=== PATIENT | male | born 1955 | race Caucasian/White ===

== ENCOUNTER 2025-01-07 00:31 | Inpatient (IN) | payer OTHER ==
[~2025-01-07] VITALS: Ht 175.3 cm; Wt 80.0 kg
[2025-01-07] VITALS (9 sets, daily range): BP systolic 116–142; BP diastolic 49–75; PULSE 96–122; RESP 18–43; TEMP 97.1–97.2; O2SAT 95–100
[~2025-01-07 00:31] MED LIST: ACET-1008 PO; ALPR0.5T8 PO; LISI10TA27 PO
--- NOTE | 2025-01-07 00:53 | Physician Documentation ---
History of Present Illness General Stated Complaint: XFER Time Seen by MD: 00:36 Primary Medical Doctor: Dr. Thomason History of Present Illness Initial Comments 69-year-old male transfer [facility] for sepsis, patient presented there was shortness of breath and weakness the patient has a history of prostate cancer and received chemotherapy a week ago. Patient was given Zosyn and vanco and found to have a significant lactic acidosis. The patient is selective care he does not want intubation, the patient is confused he is unable to provide any additional history. The patient was transferred to our facility by air. His lactate was 13 at the outside institution. Medication Reconciliation Allergies: Uncoded Allergies: CHLORAPREP (Allergy, Unknown, 07/19/24) Scheduled Lisinopril (Lisinopril), 10 MG PO DAILY Scheduled PRN Acetaminophen (Tylenol), 650 MG PO Q6H PRN for pain, (Reported) Alprazolam (Alprazolam), 1 TAB PO BID PRN for anxiety, (Reported) Past Medical History Other Past Medical History: Prostate cancer Smoking: Quit greater than 1 year Alcohol Use: Alcoholic Drug Use: marijuana Lives with: Spouse Lives In: Home Occupation: retired Review of Systems Unable to obtain complete ROS: altered mental status Physical Exam Physical Exam Physical Exam VITALS: Reviewed and as above. GENERAL: Confused, follows commands moderate respiratory distress HEENT: Normocephalic, atraumatic, PERRL, EOMI, dry mucosa, no erythema RESPIRATORY: Diminished breath sounds bilaterally with rhonchi bilaterally, moderate respiratory distress CHEST: No accessory muscle use, no retractions CV: Regular rate, rhythm, no edema, no murmur, No: JVD GI: Soft, non-tender, bowels sounds present, no rebound, guarding, or rigidity BACK: No CVA tenderness, or swelling MUSCULOSKELETAL: No deformities, no edema SKIN: Warm and dry, no rash NEURO: Oriented x1, No motor or sensory deficit Progress Results/Orders Results/Orders Orders - JAM TABOR MD Chest,Single View (01/07/25 00:43) Ct Chest Abdomen Pelvis (01/07/25 02:40) Page Hospitalist (01/07/25 02:44) Fill Out Med Reconciliation (01/07/25 02:44) Abg (Arterial Blood Gas) (10/18/25 ) Completed Orders - OHLFS,JAM Stewart MD CMP (01/07/25 00:43) Procalcitonin (01/07/25 00:43) Chest,Single View (01/07/25 00:43) LA (01/07/25 00:53) Normal Saline 1000ml (0.9% Sodium Chlori (01/07/25 01:00) Piperacillin/Tazo 3.375gm/50ml (Zosyn 3. (01/07/25 01:00) Cbc/Diff (01/07/25 02:01) Normal Saline 1000ml (0.9% Sodium Chlori (01/07/25 02:15) Ct Chest Abdomen Pelvis (01/07/25 02:40) Lactic,2hr (01/07/25 02:57) Man Diff (01/07/25 02:43) Potassium Cl Sr Tablet (K-Dur Tablet) (01/07/25 03:35) Potassium Cl Sr Tablet (K-Dur Tablet) (01/07/25 03:35) Magnesium Cl Er Tablet (Slow-Mag Tablet) (01/07/25 03:35) Magnesium Sulf-Water 2g/50ml (Magnesium (01/07/25 03:35) Magnesium Sulf-Water 4g/100ml (Magnesium (01/07/25 03:35) Potassium Cl 40meq/1/2ns 520ml ([place] (01/07/25 03:35) K And/Or Mag Replacement (K And/Or Mag R (01/07/25 08:00) Hgb A1c (01/07/25 01:18) MG (01/07/25 01:18) PBNP (01/07/25 01:18) PHOS (01/07/25 01:18) Direct Bili (01/07/25 01:18) LDH (01/07/25 01:18) Vital Signs 01/07/25 01/07/25 01/07/25 00:43 00:58 03:00 Temp 98.7 Pulse 103 101 Resp 26 26 28 B/P (MAP) 116/79 129/75 (93) Pulse Ox 95 93 O2 Flow Rate 15.0 12.0 Laboratory Tests Test 01/07/25 01:18 01/07/25 02:43 01/07/25 03:52 CBC Comment Sodium Level 141 Potassium Level 2.8 *L Chloride Level 105 Carbon Dioxide Level 21.7 L Anion Gap 14 Blood Urea Nitrogen 28 H Creatinine 1.67 H Estimated GFR/1.73 m2 41 BUN/Creatinine Ratio 16.8 Glucose Level 68 L Hemoglobin A1c 5.5 Lactic Acid Level 7.2 *H 6.6 *H Calcium Level 8.9 Phosphorus Level 4.0 Magnesium Level 1.7 Total Bilirubin 3.2 H Direct Bilirubin 2.1 H Aspartate Amino Transf (AST/SGOT) 62 H Alanine Aminotransferase (ALT/SGPT) 46 Alkaline Phosphatase 33 L Lactate Dehydrogenase 212 Pro-B-Type Natriuretic Peptide 53057 H Total Protein 5.9 L Albumin 1.8 L Globulin 4.1 Albumin/Globulin Ratio 0.4 L Procalcitonin 28.26 H Chemistry Comments White Blood Count 0.9 *L Red Blood Count 3.43 L Hemoglobin 12.5 L Hematocrit 34.7 L Mean Corpuscular Volume 101.0 H Mean Corpuscular Hemoglobin 36.5 H Mean Corpuscular Hemoglobin Concent 35.4 Red Cell Distribution Width 14.7 H Platelet Count 36 *L Mean Platelet Volume 11.1 H Neutrophils (%) (Auto) Lymphocytes (%) (Auto) Monocytes (%) (Auto) Eosinophils (%) (Auto) Basophils (%) (Auto) Neutrophils # (Auto) Lymphocytes # (Auto) Monocytes # (Auto) Eosinophils # (Auto) Basophils # (Auto) Differential Total Cells Counted 50 Neutrophils % (Manual) 36.0 L Band Neutrophils % 6.0 Lymphocytes % (Manual) 54.0 H Monocytes % (Manual) 4.0 Platelet Estimate Decreased Large Platelets Few Red Blood Cell Morphology Perf Basophilic Stippling Anisocytosis 1+ Macrocytosis 1+ Prothrombin Time 15.0 H INR International Normalized Ratio 1.5 Activated Partial Thromboplast Time 39 H D-Dimer 1.17 H D-Dimer Comment Coagulation Comments Blood Gas Specimen Type Arterial Blood Gas Puncture Site Rr O2 Saturation 96.7 Arterial Blood pH (Temp corrected) 7.493 H Arterial Blood pCO2 (Temp correct) 25.6 L Arterial Blood pO2 (Temp corrected) 89.8 Arterial Blood PO2/FiO2 Ratio 0.95 Arterial Blood HCO3 19.2 L Arterial Blood Base Excess -2.7 L Arterial Blood Oxyhemoglobin 96.2 Arterial Blood Carboxyhemoglobin 0.2 L Arterial Blood Methemoglobin 0.3 Arterial Blood Deoxyhemoglobin 3.3 Krunal Test Modified Blood Gas Hemoglobin 12.5 L Blood Gas Temperature 37.0 Blood Gas Liter Flow 15 Blood Gas Modality Mask - nrb FiO2 96.0 Medical Decision Making Additional information obtaine: old records Findings The patient's EKG was interpreted as a sinus tachycardia with a rate of 104 with a left axis and nonspecific ST abnormalities the EKG was interpreted as a borderline EKG time of the EKG interpretation was 0438. The patient was transferred to our facility for [facility] with a history of prostate cancer recently on chemo and neutropenic the patient is critically ill with neutropenic fever likely from pneumonia, the patient was continued on antibiotics here in the emergency department the patient expressed his desire to be a DNR at the outside institution and paperwork has been transferred with the patient. The patient was given IV fluids as well. Prior hospitalizations have been reviewed. The patient's pulse oximetry was interpreted as abnormal and low. Differential Diagnosis Pneumonia, urosepsis, dehydration, Departure Admitted to Inpatient Unit: yes, to hospitalist Impression: Primary Impression: Neutropenia Qualified Codes: D70.1 - Agranulocytosis secondary to cancer chemotherapy; T45.1X5A - Adverse effect of antineoplastic and immunosuppressive drugs, initial encounter Additional Impression: Septic shock Referrals: NO PRIMARY CARE PROVIDER (PCP) Signature Scribe Signature: no scribe Attestation: The note accurately reflects work and decisions made by me.Jam Tabor MD 01/09/25 07:42 JAM TABOR MD Jan 07, 2025 00:53
--- NOTE | 2025-01-07 01:13 | RADIOLOGY REPORT ---
CHEST RADIOGRAPH Indication: sob Technique: Single frontal view of the chest was obtained COMPARISON: None FINDINGS: Lines and Tubes: Right mediPort tip projects over the distal superior vena cava. Lungs: Clear Pleura: No effusion. No pneumothorax. Cardiomediastinal contours: Unremarkable Bones: Unremarkable IMPRESSION: 1. No radiographic evidence of acute cardiopulmonary abnormality. 2. Right MediPort.
[2025-01-07 01:50] LABS: CREATININE 1.67 MG/DL (0.60-1.10); TOTAL CARBON DIOXIDE 21.7 MMOL/L (24-32); eCRCL 42 ML/MIN; eGFR 41 ML/MIN
[2025-01-07] MEDS: piperacillin/tazo 3.375gm/50ml 50 ML IV ONE (02:16)
[2025-01-07] MEDS: normal saline 1000ML IV soln IVB ONE ×2 (02:17→03:54)
[2025-01-07 02:52] LABS: MEAN PLATELET VOLUME 11.1 FL (7.4-10.4); RED CELL DISTRIBUTION WIDTH 14.7 % (11.5-14.5)
[2025-01-07] MEDS ORDERED: potassium Cl 40MEQ/1/2NS 520ml 520 ML IV PRN ×2 (03:35→03:50)
[2025-01-07] MEDS ORDERED: magnesium sulf-water 4G/100mL 100 ML IV PRN ×2 (03:35→03:50)
[2025-01-07] MEDS ORDERED: magnesium Cl slow-release 64mg tablet PO PRN ×2 (03:35→03:50)
[2025-01-07] MEDS ORDERED: magnesium sulf-water 2g/50mL 50 ML IV PRN ×2 (03:35→03:50)
[2025-01-07] MEDS ORDERED: potassium Cl 20 mEq SR tablet PO PRN ×4 (03:35→03:50)
--- NOTE | 2025-01-07 03:48 | RADIOLOGY REPORT ---
Exam: CT CT CHEST ABDOMEN PELVIS History: septic shock Comparison Study: DI CHEST,SINGLE VIEW on DOS: 01/07/25, CT ABDOMEN AND PELVIS W/ CONTRAST on DOS: 07/19/24 Technique: Multidetector spiral CT of the chest, abdomen and pelvis was performed from lower neck to pubic symphysis Axial, coronal and sagittal multiplanar reformats were performed by the technologist on a separate workstation. Radiation Dose : 1. Chest/Abdomen/Pelvis: CTDIvol 14.83 mGy, DLP 968.97 mGy*cm. Findings: Lower neck: Normal thyroid. Lungs: Moderate posterior right lower lobe consolidation and patchy nodular appearing infiltrates throughout the right upper and bilateral lower lobes with a tree-in-bud morphology. No evidence of effusion or pneumothorax. Right MediPort terminates within the distal superior vena cava. Heart/Vascular Structures: Normal heart size. No pericardial effusion. Lymph Nodes: No adenopathy Pleura: No pleural effusion or significant pneumothorax. Liver: The liver is normal in size. Diffuse hepatic steatosis. No focal lesions. Normal hepatic parenchymal attenuation. Gallbladder and Biliary Tree: Unremarkable Spleen: Unremarkable Pancreas: The pancreas is normal in appearance without focal lesions. Adrenal Glands: Unremarkable Kidneys: Kidneys demonstrate normal symmetric parenchymal attenuation without focal lesions, calculi or hydronephrosis. Bladder: Unremarkable Bowel: The stomach is grossly normal in appearance. Scattered diverticula throughout the colon without CT evidence of acute diverticulitis. Small bowel and colon are normal in caliber and distribution. Anastomotic bowel sutures at the rectosigmoid junction. The appendix is not visualized; however, no secondary findings of acute appendicitis identified. Ascites: Absent Lymphadenopathy: No mesenteric, retroperitoneal or periportal lymphadenopathy. Abdominal Wall and Mesentery: Unremarkable. Vasculature: The visualized abdominal aorta is normal in size and caliber. Atherosclerotic vascular calcifications. Pelvic Organs: Unremarkable Musculoskeletal: No aggressive focal bony lesions, acute fractures or dislocation. IMPRESSION: 1. Moderate posterior right lower lobe consolidation and patchy nodular appearing infiltrates throughout the right upper and bilateral lower lobes with a tree-in-bud morphology. Findings are concerning for multifocal pneumonia and/or atypical infectious process. 2. Hepatic steatosis. 3. Diverticulosis without CT evidence of acute diverticulitis.
[2025-01-07] MEDS ORDERED: HYDROcodone/acetaminophen 10/325mg tab PO PRN (03:50)
[2025-01-07] MEDS ORDERED: HYDROcodone/acetaminophen 5mg/325mg tablet PO PRN (03:50)
[2025-01-07] MEDS ORDERED: mag hydrox/Alum hydrox/simeth 30ml oral suspension PO PRN (03:50)
[2025-01-07] MEDS ORDERED: ondansetron/PF 4mg/2ml inj IV PRN (03:50)
[2025-01-07] MEDS ORDERED: magnesium hydroxide 30ml (MOM) UD suspension PO PRN (03:50)
[2025-01-07 03:55] LABS: ABG BASE EXCESS -2.7 mmol/L (-2.0-3.0); ABG HCO3 19.2 mmol/L (21.0-28.0); ABG OXYGEN SATURATION 96.7 % (94.0-98.0); ABG PCO2 (T) 25.6 mmHg (35.0-48.0); ABG PH (T) 7.493 (7.350-7.450); ABG PO2 (T) 89.8 mmHg (83.0-108.0); ALLEN'S TEST Modified; FCOHb 0.2 % (0.5-1.5); FHHb 3.3 % (0.0-5.0); FIO2 96.0 mmHg/%; FLOW 15 L/min; FMetHb 0.3 % (0.0-1.5); FO2Hb 96.2 % (94.0-98.0); MODE MASK - NRB; PATIENT TEMPERATURE 37.0; TOTAL HEMOGLOBIN 12.5 G/dl (13.5-17.5)
[2025-01-07] MEDS ORDERED: ringers solution, lacted 1,000 ML IV SCH (04:00)
--- NOTE | 2025-01-07 04:01 | HISTORY AND PHYSICAL-Residence ---
History & Physical Providers to CC Resident Creating Document: HAVEN BERGER RES ~ History of Present Illness Primary Medical Doctor: Dr. Thomason Reason for Admit\Complaint: Acute hypoxemic respiratory failure History of Present Illness This 69-year-old male was transferred from [facility] for acute hypoxemic respiratory failure. Patient is in severe respiratory distress and is on 15 L non-rebreather mask. Not able to communicate clearly. Is able to say yes or no to the questions. Mentioned that he has been feeling weak for the last few days. Denies any cough, chest pain, nausea or vomiting, abdominal pain, constipation or diarrhea, dysuria. Per the transfer records, he has been experiencing nausea, vomiting, diarrhea, worsening shortness of breath, generalized weakness for the last 2-3 days. He has prostate cancer and received radiation therapy and also received chemotherapy last week. He got cholecystectomy-on 07/20/2024. Also mentioned that he was in the hospital for some right leg surgery within the last three months but his words are not very clear. Unsure if he had any hospital admissions in the last 3-6 months. VBG at the outside hospital showed severe metabolic acidosis with a pH of 7.15. Lactic acid was 13.8. He received 2 L Ringer's lactate, 1.5 g vancomycin IV, 4.5 g IV Zosyn and 1 g IV Tylenol at the outside hospital. Denies using oxygen at home. Allergies: Uncoded Allergies: CHLORAPREP (Allergy, Unknown, 07/19/24) Home Medications Home Medications Active Lisinopril 10 Mg Tablet 10 Mg PO DAILY 30 Days Reported Tylenol (Acetaminophen) 325 Mg Tablet 650 Mg PO Q6H PRN 5 Days Alprazolam 0.5 Mg Tablet 1 Tab PO BID PRN Past Medical History Past Medical History Asthma, hypotension, prostate cancer-s/p radiation and chemotherapy Past Surgical History Surgical History Comment Right shoulder orthopedic surgery, Appendectomy in 2016, Partial colectomy 2003, S/P colostomy, cholecystectomy on 07/20/2024 Family History Family History: FH: diabetes mellitus Past Social History Social History Comment Stated that he quit smoking tobacco about 40 years back. Drinks about three beers per day and has been doing it for the last 15-20 years. Denied abusing any other recreational drugs. Per records, history of marijuana abuse Occupation: retired ROS ROS Constitutional: Chills and weakness present. No fever, dizziness, weight gain or loss Eyes: No pain, erythema, discharge, blurring of vision ENT: No sore throat, epistaxis, tinnitus Cardiovascular: No chest pain, chest pressure, chest discomfort, palpitations, syncope, lower extremity edema, paroxysmal nocturnal dyspnea Respiratory: Shortness of breaths present. No cough, hemoptysis Gastrointestinal: Normal appetite. No nausea, vomiting, diarrhea, constipation, hematemesis, abdominal pain, bloating, melena or fresh blood Genitourinary: No frequency, urgency, nocturia, hematuria or dysuria Musculoskeletal: No arthralgias or myalgias Integumentary: No change in skin, hair, nails. No swelling, bruising, abrasions Neurologic: No headache, neck pain, numbness or tingling of the extremities, weakness Psychiatric: No delusions, depression, loss of interest in normal activity or change in sleep pattern, hallucinations, suicidal ideations Endocrine: No polydipsia, polyuria, change in appetite, heat or cold intolerance, sweating, dry skin Hematological: No bleeding, petechiae, bruising Allergies: No asthma or urticaria Unable to obtain: altered mental status Exam Vitals: Vital Signs Date Time Temp Pulse Resp B/P (MAP) Pulse Ox O2 Delivery O2 Flow Rate FiO2 01/07/25 03:00 101 28 129/75 (93) 93 12.0 01/07/25 00:43 98.7 General: Alert and oriented x4. In acute respiratory distress HEENT: Normocephalic and atraumatic. Pupils equal round reactive to light and accommodation. Extraocular movements intact. Oral and nasal mucosa moist Neck: Trachea is in midline. No masses or JVD Chest: Bilateral decreased breath sounds. Bilateral rhonchi present. No crackles or wheezes. Has a right MediPort for chemotherapy Cardiovascular: Elevated rate. Regular rhythm. No rubs or murmurs Abdomen: Soft, nontender nondistended. Bowel sounds present Extremities: No cyanosis, clubbing or edema Central Nervous System: No gross sensory or motor deficits Skin: Warm and dry. Erythematous macules on bilateral lower extremities on and below knees Diagnostic Data Last Recorded Lab Results: 01/07/25 0243 01/07/25 0118 Advance Care Planning Advanced Care plannin - 30 Minutes Additional Plan Acute hypoxemic respiratory failure Sepsis secondary to bilateral multifocal pneumonia Pancytopenia, Severe neutropenia Now on 15 L non-rebreather mask. Placed order for BiPAP and informed nurse Chest/abdomen/pelvis CT showed moderate posterior right lower lobe consolidation and patchy nodular appearing infiltrates of the right upper and bilateral lower lobes with a tree-in-bud morphology concerning for multifocal pneumonia and/or/atypical infectious process. Hepatic steatosis. Diverticulosis without evidence of acute diverticulitis Received 4.5 g IV Zosyn and 1.5 g IV vancomycin at the outside hospital Received Zosyn 3.375 g IV once here in the ER and 2 L normal saline boluses Started Zosyn 4.5 g IV q.8h and vancomycin pharmacy to dose Started Ringer's lactate 100 cc/hour. 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 Positive for rhino/enterovirus UA and urine tox pending Pending troponin. EKG showed sinus rhythm, elevated rate, no significant ST or T-wave changes, Q-waves in lead V1 Elevated D-dimer at the outside hospital. Chest CTA ordered to rule out PE Trend lactic acid q.2h till normal. Came down to 6.6 from 13.8 at the outside hospital Given Solu-Medrol 125 mg IV once Started Solu-Medrol 60 mg IV b.i.d. Started Neutropenic precautions Metabolic acidosis with a high anion gap Acute kidney injury BUN 28 and creatinine 1.67 Corrected anion gap with the albumin: 20 Urine lytes ordered Delta ratio at the outside hospital 1.1 and now it went up to 3.4 indicating underlying metabolic Venous blood gas PH 7.1. Expected PaCO2 at the outside hospital should be 25.5- 29.5 but it was 40 - possible underlying respiratory acidosis in addition to metabolic acidosis Arterial blood gas 7.493 Expected PaCO2 here should be 34.8-38.8 but it was 25.6 - possible underlying respiratory alkalosis due to hyperventilation and 15L non- rebreather mask in addition to metabolic acidosis. So, decreased oxygen to 12 L O2. Delta ratio was 3.4 at 1:18 a.m. but ABG was done at 3:52 a.m. after being on non-rebreather mask. Later, o2 requirement went up and so starting BiPAP Continue to monitor and repeat ABG in a.m. Thrombocytopenia No active bleeding Likely due to sepsis or chemotherapy-induced Platelets within normal limits in July this year Continue to monitor for bleeding Hypokalemia Continue replacement as per protocol Possible due to diarrhea or RTA Hyperbilirubinemia S/p cholecystectomy Total bilirubin-3.2 AST 62, ALT 33 Direct and indirect bilirubin, LDH ordered Continue to monitor Prostate cancer s/p radiation and ongoing chemotherapy Follow up with the oncologist outpatient Hypertension Started amlodipine 10 mg p.o. daily Unsure home medications # Elevated proBNP. Does not look fluid overloaded. Pending troponin. Follow up echocardiogram. Held fluids for now Diet: Renal diet DVT prophylaxis: SCDs Code status: Does not want intubation. Okay with chest compression Haven Berger MD Internal Medicine Resident, PGY 3 Fusaro Addendum #1 Neuro: Acute Confusion/Delirium -Monitor for delirium and potential causes including infection and metabolic disturbances. -Consider discontinuing or adjusting any potentially contributing medications. -Engage with patient frequently to help orient. #2 CV: History of Hypertension -If hemodynamically stable, consider continuing home blood pressure medications. -Monitor vitals closely for any changes. #3 Pulm: Pneumonia Noted consolidation on CXR, consistent with pneumonia. Pt is hypoxic on NRB. Start BIPAP. He is DNI. Would have low threshold for ICU transfer -Continue broad-spectrum antibiotics (vancomycin and zosyn) for HCAP coverage given patient's complex presentation and severe neutropenia. -Ensure sputum and blood cultures are pending for any directed therapy. #4 GI: -Advance diet as tolerated and when cleared by the primary team. #5 Renal: Acute Kidney Injury and Metabolic Acidosis -SHERI with unclear etiology; consider prerenal, post-renal, or intrinsic causes. -Adjust medication doses based on renal function. -Monitor and replete electrolytes #6 Electrolytes: Hypokalemia -Replete potassium aggressively due to significant hypokalemia -Monitor for EKG changes or arrhythmias due to electrolyte imbalance. #7 ID: Infection Concerns -Continue broad-spectrum antibiotics for pneumonia (vancomycin and zosyn). -Await cultures and consider de-escalation based on organism susceptibility. -Assess for other sources of infection contributing to delirium and SHERI. #8 Heme/Onc: Pancytopenia Severe neutropenia (WBC 0.9 10^9/L); monitor closely for signs of infection or sepsis. Thrombocytopenia (Platelets 36 10^9/L); monitor and consider transfusion if active bleeding or platelets < 10. -Monitor hemoglobin levels for anemia, consider transfusion if significantly low. #9 Endo: -Maintain blood glucose levels between 150-180 mg/dL. #10 PPx: -Sequential compression devices for DVT prophylaxis. -Consider PPI or H2 angel for GI prophylaxis, especially given coagulopathy and risk of GI bleeding. I spent a total of greater than 60 minutes formulating critical care for this patient today. I saw this patient and completed a full visual exam via audio- visual HIPAA compliant technology. Date of Service: Jan 07, 2025 Billing Provider: REECE DARBY MD [facility] Jan 07, 2025 04:01 REECE DARBY MD Jan 07, 2025 10:18
[2025-01-07] MEDS: potassium Cl 40MEQ/1/2NS 520ml 520 ML IV ONE (04:16)
[2025-01-07 04:36] LABS: APTT 39 SECONDS (22-32); INR 1.5 INR
--- NOTE | 2025-01-07 04:40 | ELECTROCARDIOGRAPH REPORT ---
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 Fran Kaba Measurements Intervals [place] Rate: 104 P: 63 HI: 196 QRS: -30 QRSD: 93 T: 91 QT: 336 QTc: 442 Interpretive Statements Sinus tachycardia Left axis deviation Low voltage, extremity and precordial leads Nonspecific T abnormalities, lateral leads Electronically Signed On 01-13-2025 7:51:[address] Fran Kaba Please click the below link to view image of tracing.
[2025-01-07 04:44] LABS: PHOSPHORUS 4.0 MG/DL (2.3-4.5); PRO BRAIN NATRIURETIC PEPTIDE 10578 PG/ML (0-125)
[2025-01-07 04:53] LABS: BANDS% (MANUAL) 6.0 % (0-10); LYMPHOCYTES % (MANUAL) 54.0 % (21-51); MONOCYTES % (MANUAL) 4.0 % (2-12); NEUTROPHILS % (MANUAL) 36.0 % (42-75)
[2025-01-07 04:54] LABS: LARGE PLATELETS FEW; PLATELET ESTIMATE DECREASED
[2025-01-07] MEDS ORDERED: albuterol 2.5 MG/3 ML nebule NEB PRN ×2 (05:05→08:15)
[2025-01-07] MEDS ORDERED: ipratropium/albuterol 3ml nebule NEB PRN ×2 (05:05→23:32)
[2025-01-07 05:44] LABS: LACTATE DEHYDROGENASE 212 U/L (85-227)
--- NOTE | 2025-01-07 05:46 | RADIOLOGY REPORT ---
CTA Chest with intravenous contrast INDICATION: rule out pe COMPARISON: CT CT CHEST ABDOMEN PELVIS on DOS: 01/07/25 TECHNIQUE: Multidetector spiral CTA of the chest was performed of the chest with intravenous contrast. PULMONARY ANGIOGRAPHY PROTOCOL was utilized using a bolus- tracking technique centered on the main pulmonary artery. Axial, coronal and sagittal multiplanar and MIP reformats were performed. Radiation Dose : 1. Chest: CTDI volume is 19.53 mGy. Dose-length product is 725.47 mGy*cm The dose indicators for CT are the volume Computed Tomography (CT) Dose Index (CTDIvol) and the Dose Length Product (DLP), and are measured in units of mGy and mGy-cm, respectively. These indicators are not patient dose, but values generated from the CT scanner acquisition factors. The report includes radiation exposure data for exposures received during this examination. Findings: Pulmonary artery: No pulmonary embolism. Lower neck: Normal thyroid. Lungs: Moderate posterior right lower lobe consolidation and patchy nodular appearing infiltrates throughout the right upper and bilateral lower lobes with a tree-in-bud morphology. No evidence of effusion or pneumothorax. Right MediPort terminates within the distal superior vena cava. Heart/Vascular Structures: Normal heart size. No pericardial effusion. Atherosclerotic vascular calcifications. Lymph Nodes: No adenopathy Musculoskeletal: No acute osseous abnormality. Soft tissues: Normal. Upper abdomen: Limited portions of the upper abdomen are unremarkable. IMPRESSION: 1. No pulmonary embolism. 2. Moderate posterior right lower lobe consolidation and patchy nodular appearing infiltrates throughout the right upper and bilateral lower lobes with a tree-in-bud morphology.
[2025-01-07] MEDS ORDERED: piperacillin/tazo 3.375gm/50ml 50 ML IV SCH (06:00)
[2025-01-07] MEDS ORDERED: VANCOMYCIN 1GM 200ML H20 (PEG) 200 ML IV SCH (08:00)
[2025-01-07] MEDS: K and/or MAG REPLACEMENT MC SCH (08:00)
[2025-01-07] MEDS ORDERED: K and/or MAG REPLACEMENT MC SCH (08:00)
[2025-01-07] MEDS ORDERED: ipratropium/albuterol 3ml nebule NEB SCH (08:15)
[2025-01-07 08:35] LABS: LEUKOCYTE ESTERASE ,URINE NEGATIVE (Neg); NITRITES, URINE NEGATIVE (Neg); OCCULT BLOOD,URINE TRACE-INTACT (Neg)
[2025-01-07 08:39] LABS: UA COLLECTION TYPE URINAL
[2025-01-07 08:40] LABS: MUCUS STRANDS NONE SEEN /LPF (Neg); SQUAMOUS EPITHELIAL CELL,UR FEW /LPF (FEW)
[2025-01-07] MEDS: azithromycin/NS 500mg/250ml 250 ML IV SCH (08:57)
[2025-01-07 09:09] LABS: URINE AMPHETAMINE SCREEN NEGATIVE (Neg); URINE BARBITUATE SCREEN NEGATIVE (Neg); URINE BENZODIAZEPINES SCREEN NEGATIVE (Neg); URINE CANNABINOID SCREEN NEGATIVE (Neg); URINE COCAINE SCREEN NEGATIVE (Neg); URINE METHADONE SCREEN NEGATIVE (Neg); URINE OPIATE SCREEN NEGATIVE (Neg); URINE PHENCYCLIDINE SCREEN NEGATIVE (Neg)
[2025-01-07 09:09] LABS: ABG BASE EXCESS -8.2 mmol/L (-2.0-3.0); ABG HCO3 14.5 mmol/L (21.0-28.0); ABG OXYGEN SATURATION 99.0 % (94.0-98.0); ABG PCO2 (T) 24.4 mmHg (35.0-48.0); ABG PH (T) 7.394 (7.350-7.450); ABG PO2 (T) 277.8 mmHg (83.0-108.0); ALLEN'S TEST POSITIVE; FCOHb 0.1 % (0.5-1.5); FHHb 1.0 % (0.0-5.0); FIO2 100.0 mmHg/%; FMetHb 0.1 % (0.0-1.5); FO2Hb 98.8 % (94.0-98.0); MODE MASK - BIPAP; PATIENT TEMPERATURE 37.7; RESPIRATORY RATE 12 b/min; TOTAL HEMOGLOBIN 13.9 G/dl (13.5-17.5)
[2025-01-07 09:27] LABS: CREATININE,URINE RANDOM 17.5 MG/DL
[2025-01-07 09:47] LABS: OSMOLALITY UA 435 MOSM/K (50-1400)
[2025-01-07] MEDS: ringers solution, lacted 1,000 ML IV ONE ×2 (10:24→12:15)
[2025-01-07] MEDS: ringers solution, lacted 1,000 ML IV SCH (10:52)
[2025-01-07] MEDS: piperacillin/tazo 4.5gm/100ml 100 ML IV SCH (13:40)
[2025-01-07] MEDS ORDERED: diazepam inj 5 MG/ML inj. IV PRN (18:05)
[2025-01-07] MEDS ORDERED: HYOSCYAMINE SULFATE PO PRN (18:20)
--- NOTE | 2025-01-07 18:51 | PROGRESS NOTE- Residence ---
Progress Note - Resident Providers to CC Resident Creating Document: BRITTANEY RIDLEY RES CC: VIRGILIO AJ MD ~ Antibiotic Timeout Antibiotic Ordered?: No Subjective This 69-year-old male was transferred from [facility] for acute hypoxemic respiratory failure. Patient is in severe respiratory distress and is on 15 L non-rebreather mask. Not able to communicate clearly. Is able to say yes or no to the questions. Mentioned that he has been feeling weak for the last few days. Denies any cough, chest pain, nausea or vomiting, abdominal pain, constipation or diarrhea, dysuria. Per the transfer records, he has been experiencing nausea, vomiting, diarrhea, worsening shortness of breath, generalized weakness for the last 2-3 days. He has prostate cancer and received radiation therapy and also received chemotherapy last week. He got cholecystectomy-on 07/20/2024. Also mentioned that he was in the hospital for some right leg surgery within the last three months but his words are not very clear. Unsure if he had any hospital admissions in the last 3-6 months. VBG at the outside hospital showed severe metabolic acidosis with a pH of 7.15. Lactic acid was 13.8. He received 2 L Ringer's lactate, 1.5 g vancomycin IV, 4.5 g IV Zosyn and 1 g IV Tylenol at the outside hospital. Denies using oxygen at home. Objective Vital Signs Date Time Temp Pulse Resp B/P (MAP) Pulse Ox O2 Delivery O2 Flow Rate FiO2 01/07/25 15:00 97.2 98 18 116/49 (71) 96 Bi-pap/CPAP 01/07/25 14:57 50 01/07/25 05:35 15.0 Result Diagram: 01/07/25 0243 01/07/25 0118 Alert and oriented x4. In acute respiratory distress Patient is in extreme distress HEENT: Normocephalic and atraumatic. Pupils equal round reactive to light and accommodation. Extraocular movements intact. Oral and nasal mucosa moist Neck: Trachea is in midline. No masses or JVD Chest: Bilateral decreased breath sounds. Bilateral rhonchi present. No crackles or wheezes. Has a right MediPort for chemotherapy Cardiovascular: Elevated rate. Regular rhythm. No rubs or murmurs Abdomen: Soft, nontender nondistended. Bowel sounds present Extremities: No cyanosis, clubbing or edema Central Nervous System: No gross sensory or motor deficits Skin: Warm and dry. Erythematous macules on bilateral lower extremities on and below knees Coagulation Studies Laboratory Tests Test 01/07/25 02:43 Prothrombin Time 15.0 SECONDS (9.0-12.0) H INR International Normalized Ratio 1.5 INR Activated Partial Thromboplast Time 39 SECONDS (22-32) H D-Dimer 1.17 MG/L FEU (0-0.50) H D-Dimer Comment Coagulation Comments Advance Care Planning Advanced Care plannin - 30 Minutes Plan Plan Acute hypoxemic respiratory failure Sepsis secondary to bilateral multifocal pneumonia Pancytopenia, Severe neutropenia Chest/abdomen/pelvis CT showed moderate posterior right lower lobe consolidation and patchy nodular appearing infiltrates of the right upper and bilateral lower lobes with a tree-in-bud morphology concerning for multifocal pneumonia and/or/atypical infectious process. Hepatic steatosis. Diverticulosis without evidence of acute diverticulitis Received 4.5 g IV Zosyn and 1.5 g IV vancomycin at the outside hospital Received Zosyn 3.375 g IV once here in the ER and 2 L normal saline boluses Started Zosyn 4.5 g IV q.8h and vancomycin Started Ringer's lactate 100 cc/hour. Held it later as per tele training program manager recommendations Bicarb improved to 21.3 from 13 at the outside hospital Elevated procalcitonin 28.26 Elevated CRP at the outside hospital COVID and influenza negative with the outside hospital. Positive for rhino/enterovirus UA and urine tox pending Pending troponin. EKG showed sinus rhythm, elevated rate, no significant ST or T-wave changes, Q-waves in lead V1 Elevated D-dimer at the outside hospital. Chest CTA ordered to rule out PE Trend lactic acid q.2h till normal. Came down to 6.6 from 13.8 at the outside hospital Given Solu-Medrol 125 mg IV once Started Solu-Medrol 60 mg IV b.i.d. Started Neutropenic precautions Patient was on max BiPAP setting with FiO2 Metabolic acidosis with a high anion gap Acute kidney injury BUN 28 and creatinine 1.67 Corrected anion gap with the albumin: 20 Delta ratio at the outside hospital 1.1 and now it went up to 3.4 indicating underlying metabolic Venous blood gas PH 7.1. Expected PaCO2 at the outside hospital should be 25.5- 29.5 but it was 40 - possible underlying respiratory acidosis in addition to metabolic acidosis Arterial blood gas 7.493 Expected PaCO2 here should be 34.8-38.8 but it was 25.6 - possible underlying respiratory alkalosis due to hyperventilation and 15L non- rebreather mask in addition to metabolic acidosis. So, decreased oxygen to 12 L O2. Delta ratio was 3.4 at 1:18 a.m. but ABG was done at 3:52 a.m. after being on non-rebreather mask. Later, o2 requirement went up and was on max setting of BiPAP Thrombocytopenia Hypokalemia Hyperbilirubinemia S/p cholecystectomy Prostate cancer s/p radiation and ongoing chemotherapy Hypertension Patient was previously on limited code status has been transitioned to DNR with comfort care after an extensive discussion held at bedside with the patient, patient's family, patient's nurse Nely. Patient is currently on BiPAP which was noted to be poorly tolerated despite optimization efforts. Detailed conversation regarding goals of care, clinical trajectory was done. Patient demonstrated cleared decision-making capacity, expressed full understanding of the condition and prognosis and explicitly stated the desire to forego further aggressive or invasive measures and was in favor of comfort focused management. Patient verbalized agreement with an acceptance of the DNR with comfort care plan which is also supported by the family. Discontinued all supporting treatment, antibiotics, initiated comfort care measures Transition from limited code status to DNR with comfort care We spent a critical care planning of 35 minutes and advanced care planning of 17 minutes for this patient. PGY 2 addendum: Initially patient was treated Zosyn and vanc, BiPAP, methylprednisolone, albuterol, DuoNebs and patient needs definitive mechanical intubation and ventilation support for worsening respiratory failure but patient does not want the ventilator support and mechanical intubation. We extensively discussed about end of the life care goals with the patient patient's daughter, son-in-law in the presence of patient's RN along with Dr. Aj,. He is in full conscious, coherent and oriented to time place person while we are discussing about the care and we explained him about the comfort care measures and he he wants to be in DNR with comfort care and he wants us to discontinue the BiPAP and other life-saving measures. Both the patient and his daughter understood the terminal illness and the full possible consequences of disseminated prostate cancer including and patient wants no heroic interventions further . We spent a critical care time of more than 35 minutes initially and we discussed extensively about the resuscitative efforts/ advanced care planning of more than 17 minutes. Hany Hernandez MD IM resident, PGY 2 Date of Service: Jan 07, 2025 Billing Provider: VIRGILIO AJ MD Common Visit Codes: 46772-[id number] CARE 30-74 MIN Secondary Visit Codes: [id number] CARE PLAN 30 MINUTES BRITTANEY RIDLEY, RES Jan 07, 2025 18:51 HANY HERNANDEZ, RES Jan 08, 2025 07:41 VIRGILIO AJ MD Jan 24, 2025 06:40
[2025-01-07] MEDS ORDERED: vancomycin/NS 1 GM ADD-VANTAGE 250 ML X 1 DOSE IV SCH ×2 (19:00→20:00)
[2025-01-07] MEDS: morphine 10mg/ml inj. IV PRN (19:26)
--- NOTE | 2025-01-07 19:35 | CARDIOLOGY REPORT ---
APPROVED REPORT EXAM: Limited 2D, Doppler, and color-flow Echocardiogram. Patient Location: ER 2 Blood Pressure: 105 /69 mmHg Heart Rate: 103 bpm Rhythm: Sinus Rhythm Indications Congestive Heart Failure Acute Respiratory Failure Sepsis secondary to Bilateral Pneumonia Hypokalemia Chemo-Prostate Cancer Fleet Mechanic: None, Transfer from [facility] Previous echo: None 2D Dimensions RVDd 3.1 cm LA Diam 4.4 cm IVSd 0.8 (0.7-1.1cm) LVDd 4.3 cm PWd 0.8 (0.7-1.1cm) IVSs 0.8 (0.8-1.2cm) RA Minor 3.2 cm LVDs 3.1 (2.5-4.0cm) PWs 0.8 (0.8-1.2cm) LVOT Diameter 2.03 (1.8-2.4cm) LVEF(%) 55.7 (>50%) FS (%) 28.8 % SV 46.7 ml CO 4.7 L/min Aortic Valve AoV Peak Dat. 92.7 cm/s AoV VTI 15.3 cm AO Peak GR. 3.4 mmHg AO Mean GR. 2 mmHg LVOT VTI 12.16 cm LVOT Peak Dat. 83.5 cm/s KATHLEEN(VTI)/BSA 2.58 cm2/m2 KATHLEEN (VTI) 2.58 cm2 AV DI 0.80 % Mitral Valve MV E Velocity 63.0 cm/s MV Peak Gr. 1 mmHg MV DECEL TIME 128 ms MV A Velocity 74.2 cm/s MV PHT 48 ms E/A Ratio 0.8 MVA (PHT) 4.58 cm2 MV VMax 57.8 cm/s Tricuspid Valve TR P. Velocity 220 cm/s RAP ESTIMATE 10 mmHg TR Peak Gr. 19 mmHg RVSP 29 mmHg LEFT VENTRICLE Normal LV size and wall thickness. Overall systolic function appears normal. Overall LVEF is 55%. RIGHT VENTRICLE RV is normal size and function. Estimated PA systolic pressure is 29 mmHg. ATRIA Left atrium appears to be mildly dilated. The right atrium size appears to be normal. AORTIC VALVE Probable trileaflet AV appears sclerotic without gross stenosis or insufficiency. Doppler measurements are estimates due to poor image quality and poor Doppler angles. MITRAL VALVE Mild MV annular calcification without gross stenosis. Trace regurgitation. Doppler measurements are estimates due to poor image quality and poor Doppler angles. TRICUSPID VALVE TV appears grossly normal in structure and function. Trace regurgitation. PULMONIC VALVE Pulmonic valve is not well visualized. GREAT VESSELS Aortic root is not well visualized. IVC is normal in size and collapses greater than 50% with inspiration. PERICARDIUM Normal pericardium. No pericardial effusion seen. Other Information Study Quality: Poor. Patients respiratory status. Lung attenuation. Poor Parasternal and Apical acoustic windows. Conclusion Normal LV size and wall thickness. Overall systolic function appears normal. Overall LVEF is 55%. RV is normal size and function. Estimated PA systolic pressure is 29 mmHg. Left atrium appears to be mildly dilated. The right atrium size appears to be normal. Probable trileaflet AV appears sclerotic without gross stenosis or insufficiency. Doppler measurements are estimates due to poor image quality and poor Doppler angles. Mild MV annular calcification without gross stenosis. Trace regurgitation. Doppler measurements are estimates due to poor image quality and poor Doppler angles. TV appears grossly normal in structure and function. Trace regurgitation. Normal pericardium. No pericardial effusion seen.
[2025-01-07] MEDS ORDERED: docusate sod 100mg capsule PO SCH (20:00)
[2025-01-08 05:50] VITALS: BP 121/75; PULSE 111; RESP 28; TEMP 99.2; O2SAT 96
[2025-01-08 08:36] VITALS: RESP 28
[2025-01-08] MEDS: morphine 10mg/0.5ml (conc. morphine) oral syringe PO PRN (10:18)
--- NOTE | 2025-01-08 13:12 | PROGRESS NOTE- Residence ---
Progress Note - Resident Providers to CC Resident Creating Document: KARSTEN HERNANDEZ RES ~ Antibiotic Timeout Antibiotic Ordered?: No Subjective Seen and examined the patient at bedside. Patient is in comfort care and he feels very relaxed and calm and he is on adequate pain medication. Objective Vital Signs Date Time Temp Pulse Resp B/P (MAP) Pulse Ox O2 Delivery O2 Flow Rate FiO2 01/08/25 08:36 28 Nasal Cannula 4.0 01/08/25 05:50 99.2 111 121/75 (90) 96 01/07/25 14:57 50 Result Diagram: 01/07/25 0243 01/07/25 0118 General: Alert, awake. He is lying comfortably in the bed with oxygen support. HEENT: Normocephalic and atraumatic. Pupils equal round reactive to light and accommodation. Extraocular movements intact. Oral and nasal mucosa moist Neck: Trachea is in midline. No masses or JVD Chest: Bilateral decreased breath sounds. Bilateral rhonchi present. No crackles or wheezes. Has a right MediPort for chemotherapy Cardiovascular: Elevated rate. Regular rhythm. No rubs or murmurs Abdomen: Soft, nontender nondistended. Bowel sounds present Extremities: No cyanosis, clubbing or edema Central Nervous System: No gross sensory or motor deficits Skin: Warm and dry. Erythematous macules on bilateral lower extremities on and below knees Coagulation Studies Laboratory Tests Test 01/07/25 02:43 Prothrombin Time 15.0 SECONDS (9.0-12.0) H INR International Normalized Ratio 1.5 INR Activated Partial Thromboplast Time 39 SECONDS (22-32) H D-Dimer 1.17 MG/L FEU (0-0.50) H D-Dimer Comment Coagulation Comments Advance Care Planning Advanced Care plannin - 30 Minutes Plan Plan Acute hypoxemic respiratory failure Sepsis secondary to bilateral multifocal pneumonia Pancytopenia, Severe neutropenia Metabolic acidosis with a high anion gap Acute kidney injury Thrombocytopenia Hypokalemia Hyperbilirubinemia S/p cholecystectomy Prostate cancer s/p radiation and ongoing chemotherapy Hypertension We will continue comfort care measures and case manager are working on hospice care. Karsten Hernandez IM resident, PGY 2 Date of Service: Jan 08, 2025 Billing Provider: VIRGILIO HUBER MD Common Visit Codes: [id number] INP/OBS CARE(HIGH) KARSTEN HERNANDEZ RES Jan 08, 2025 13:12 VIRGILIO HUBER MD Jan 24, 2025 06:40
[2025-01-08 18:00] VITALS: BP 140/76; PULSE 111; RESP 22; TEMP 97.1; O2SAT 96
[2025-01-09 06:30] VITALS: RESP 32
[2025-01-09] MEDS: morphine 4 MG/ML inj SYRINge IV PRN (06:40)
[2025-01-09 08:00] VITALS: RESP 28
[2025-01-09] MEDS ORDERED: scopolamine 1MG/72H patch 1 PATCH PATCH.TD.3 TD PRN (08:20)
--- NOTE | 2025-01-09 18:26 | Death Certificate - Resident ---
Certificate Worksheet Date of Date of : Jan 09, 2025 Cause of / Time Intervals Cause of IMMEDIATE CAUSE (Final Disease or *Time Between Onset and condition resulting in ) [Hours (H), Days (D),Week's (W),Month's (M ),Year's (Y)] Acute hypoxemic respiratory failure - days Sepsis secondary to bilateral multifocal pneumonia- days Prostate cancer s/p radiation and ongoing chemotherapy- months Home [facility]: Kim P: [phone]/F: [phone] Praveen Leblanc [id number] EDITH MCKEON, RES Jan 09, 2025 18:26 PRAVEEN HUBER MD Jan 24, 2025 06:42
[2025-01-09] MEDS ORDERED: VANCOMYCIN LEVEL IV ONE (18:30)
--- NOTE | 2025-01-09 18:38 | DISCHARGE SUMMARY-Residence ---
Discharge Summary Providers to CC Resident Creating Document: BALTAZAR ROBIN RES ~ Discharge Summary Admission Diagnosis: [facility] Hospital Course DATE OF ADMISSION: 01/07/2025 DATE OF : 01/09/2025 Discharge Diagnosis\Comment: Patient on 12/2024 at 8:20 a.m. Causes of 1) acute hypoxemic respiratory failure 2) sepsis secondary to bilateral multifocal pneumonia 3) advanced prostatic cancer s/p radiation therapy and ongoing systemic chemotherapy Operations\Procedures: None Consultants: None Complications: None Condition on DC: Discharge Summary: A 69-year-old male with a past medical history of advanced prostatic cancer s/p radiation therapy and ongoing systemic chemotherapy presented with acute severe respiratory failure and distress from the multifocal pneumonia possibly complicated from chemotherapy-induced pancytopenia including severe neutropenia. The patient's came in with a VBG results showing severe metabolic acidosis with pH of 7.15, severe lactic acidosis with a 13.8 from severe sepsis leading to acute kidney injury for which the patient was resuscitated with the excessive IV fluid ringer lactate, IV antibiotics vancomycin and Zosyn. Patient was admitted to the hospital for the critical care management. However, after the extensive goals of therapy with the patient in the presence of multidisciplinary team management members and family members decided to proceed with comfort/palliative care for his background of advanced prostatic cancer and ongoing chemotherapy collateral effects. Unfortunately, the patient from acute respiratory failure from the possible severe sepsis secondary to bilateral multifocal pneumonia on 12/2024 at 8:20 a.m. Resident MD attestation: Patient was seen, examined and discussed with attending MD, Dr. Madai ROBIN MD Internal Medicine Resident, PGY3 [facility] *Problems/Diagnosis: (1) Septic shock Status: Acute Total Time Spent on D/C: > 30 Minutes Date of Service: Jan 09, 2025 Billing Provider: VIRGILIO HUBER MD Common Visit Codes: [id number]-TIF/OBS DISCH DAY <30MIN BALTAZAR ROBIN, ISSAC Jan 09, 2025 18:37 VIRGILIO HUBER MD Jan 24, 2025 06:41
== END 2025-01-09 10:15 | DRG 871 ==
LOC: ER 00:31 → ED HOLD 03:57 → PCU 3S 12:18 → SUR 3N 22:00
PROVIDERS: ADMIT Internal Medicine Pulmonary Disease; ATTEND Family Medicine
PROC: BW211ZZ Computerized Tomography (CT Scan) of Abdomen and Pelvis using Low Osmolar Contrast (ICD-10-PCS; principal; 2025-01-07)
PROC: B32T1ZZ Computerized Tomography (CT Scan) of Left Pulmonary Artery using Low Osmolar Contrast (ICD-10-PCS; 2025-01-07)
PROC: B32S1ZZ Computerized Tomography (CT Scan) of Right Pulmonary Artery using Low Osmolar Contrast (ICD-10-PCS; 2025-01-07)
PROC: 5A09357 Assistance with Respiratory Ventilation, Less than 24 Consecutive Hours, Continuous Positive Airway Pressure (ICD-10-PCS; 2025-01-07)
DX: A41.9 Sepsis, unspecified organism (principal); D61.810 Antineoplastic chemotherapy induced pancytopenia; J18.9 Pneumonia, unspecified organism; J96.01 Acute respiratory failure with hypoxia; R65.21 Severe sepsis with septic shock; E87.20 Acidosis, unspecified; D70.1 Agranulocytosis secondary to cancer chemotherapy; N17.9 Acute kidney failure, unspecified; D69.6 Thrombocytopenia, unspecified; J45.909 Unspecified asthma, uncomplicated; K76.0 Fatty (change of) liver, not elsewhere classified; I10 Essential (primary) hypertension; Z51.5 Encounter for palliative care; Z66 Do not resuscitate; R41.0 Disorientation, unspecified; E80.6 Other disorders of bilirubin metabolism; E87.6 Hypokalemia; K57.30 Diverticulosis of large intestine without perforation or abscess without bleeding; T45.1X5A Adverse effect of antineoplastic and immunosuppressive drugs, initial encounter; Z87.891 Personal history of nicotine dependence; Z85.46 Personal history of malignant neoplasm of prostate; Y92.89 Other specified places as the place of occurrence of the external cause; Z92.3 Personal history of irradiation; Z92.21 Personal history of antineoplastic chemotherapy; Z90.49 Acquired absence of other specified parts of digestive tract
CPT/HCPCS: 36415; 36600; 71045; 71250; 71275; 74176; 80053; 80202; 80305; 81001; 82248; 82570; 82803; 83036; 83605; 83615; 83735; 83880; 83935; 84100; 84133; 84145; 84300; 84484; 85007; 85018; 85025; 85379; 85610; 85730; 87040; 87081; 87207; 93005; 93308; 94660; 94760; 96365; 99285; A4615; A6213; A6250; A6590; G0378; J0456; J2270; J2274; J2470; J2543; J2919; J7030; J7040; J7120; Q9967